=== PATIENT | female | born 1985 | race Caucasian/White ===

== ENCOUNTER 2018-07-19 17:58 | Emergency (ER) | payer MEDICAID ==
[2018-07-19 18:04] VITALS: BMI 22.6
[2018-07-19 18:07] VITALS: O2SAT 100
[2018-07-19] MEDS ORDERED: Iohexol 240 (50 ml) PO ONE (19:05)
[2018-07-19] MEDS ORDERED: Sodium Chloride 0.9% 1,000 ML IV ONE (19:05)
[2018-07-19] MEDS ORDERED: Sodium Chloride 0.9% 500 ML IV ONE (19:05)
[2018-07-19] MEDS ORDERED: Iohexol 240 (50 ml) ONE (19:15)
--- NOTE | 2018-07-19 19:17 | C.PDOC ---
History Of Present Illness 32 y/o female presents to the ED complaining of localized abdominal pain at the right lower quadrant, onset 4-5 days ago. Pain is also radiating down the right lower leg. Patient denies associated nausea/vomiting, she does report some diarrhea. Otherwise she denies fevers, chills, hematuria, frequency, dysuria, or vaginal bleeding. Time Seen by Provider: 07/19/18 19:00 Chief Complaint (Nursing): Abdominal Pain History Per: Patient History/Exam Limitations: no limitations Onset/Duration Of Symptoms: Days Current Symptoms Are (Timing): Still Present Location Of Pain/Discomfort: RLQ Past Medical History Reviewed: Historical Data, Nursing Documentation, Vital Signs Vital Signs: Last Vital Signs Temp 98.2 F 07/19/18 18:04 Pulse 57 L 07/19/18 18:04 Resp 16 07/19/18 18:04 BP 116/82 07/19/18 18:04 Pulse Ox 100 07/19/18 18:04 Surgical History: Cholecystectomy - [facility] Procedures MANUAL ASSIST DELIV NEC (04/16/14) REPAIR OB LACERATION NEC (04/16/14) - Social History Hx Tobacco Use: No Hx Alcohol Use: No Hx Substance Use: No - Immunization History Hx Tetanus Toxoid Vaccination: No Hx Influenza Vaccination: No Hx Pneumococcal Vaccination: No Review Of Systems Except As Marked, All Systems Reviewed And Found Negative. Constitutional: Negative for: Fever, Chills Gastrointestinal: Positive for: Abdominal Pain, Diarrhea. Negative for: Nausea, Vomiting, Hematochezia Genitourinary: Negative for: Dysuria, Frequency, Incontinence, Hematuria Physical Exam - Physical Exam Appears: Non-toxic, No Acute Distress Skin: Normal Color, Warm, Dry Head: Atraumatic, Normacephalic Eye(s): bilateral: Normal Inspection, PERRL, EOMI Oral Mucosa: Moist Neck: Normal ROM Chest: Symmetrical Cardiovascular: Rhythm Regular, No Murmur Respiratory: Normal Breath Sounds, No Accessory Muscle Use Gastrointestinal/Abdominal: Soft, Tenderness (localized tenderness to RLQ), No Guarding, No Rebound Back: No CVA Tenderness, No Vertebral Tenderness Extremity: Bilateral: Atraumatic, Normal Color And Temperature Pulses: Left Dorsalis Pedis: Normal, Right Dorsalis Pedis: Normal Neurological/Psych: Oriented x3, Normal Speech ED Course And Treatment - Laboratory Results Result Diagrams: 07/19/18 19:31 07/19/18 19:31 O2 Sat by Pulse Oximetry: 100 (RA) Pulse Ox Interpretation: Normal - CT Scan/US CT abd/pelvis Other Rad Studies (CT/US): Read By Radiologist, Radiology Report Reviewed CT/US Interpretation: EXAM: CT Abdomen and Pelvis with IV contrast. CLINICAL HISTORY: RLQ abd pain/tenderness. TECHNIQUE: Axial computed tomography images of the abdomen and pelvis with oral and intravenous contrast. 474 mGy-cm. CO NTRAST: With intravenous contrast. With; OMNI 240 & VISI 100 MLS. COMPARISON: None provided. FINDINGS: LUNG BASES: The lung bases appear clear. No pleural effusions are seen. LIVER: There is diffuse hepatic hypoattenuation compatible with fatty infiltration. GALLBLADDER AND BILE DUCTS: S/p cholecystectomy. Surgical clips are noted in the gallbladder fossa. PANCREAS: Unremarkable. SP COLE: Unremarkable. ADRENAL GLANDS: Unremarkable. KIDNEYS, URETERS, AND BLADDER: The kidneys appear within normal limits. There is no hydronephrosis or hydroureter. No urinary calculi are seen. STOMACH AND BOWEL: Thick walled fluid filled duodenum and loops of jejunum compatible with enteritis. APPENDIX: No evidence of acute appendicitis on CT examination. PERITONEUM: No free fluid. No free air. LYMPH NODES: No lymphadenopathy is evident. REPRODUCTIVE: Simple 2 cm right ovarian cyst is seen. The uterus and ovaries are otherwise unremarkable. Tampon is present. VASCULATURE: No evidence of abdominal aortic aneurysm. BONES: No aggressive appearing osseous lesion. No acute osseous pathology evident. IMPRESSION: 1. Fatty liver. 2. S/p cholecystectomy. 3. Enteritis as above. 4. Simple 2 cm right ovarian cyst is seen. . Electronically signed on Jul 19, 2018 9:56:07 PM EDT by: Eliceo Ornelas M.D., MARCOS Certified By ABR & CBC[employer]. Fellowship Trained MRI and CT Specialist Medical Decision Making Medical Decision Making: Impression: RLQ pain Plan: Labs ordered and reviewed. CT Abd/Pelvis ordered with PO & IV contrast. Administ ered IV fluids and Toradol. Disposition Counseled Patient/Family Regarding: Diagnosis - Disposition Referrals: [facility] [Outside] Disposition: HOME/ ROUTINE Disposition Time: 23:29 Condition: STABLE Prescriptions: Naproxen 375 mg PO Q8 #14 tablet Forms: [employer] ([place]) - POA Present On Arrival: None - Clinical Impression Clinical Impression: Ovarian cyst, Abdominal pain - Scribe Statement The provider has reviewed the documentation as recorded by the Scribe (Malka Sahni) Provider Attestation: All medical record entries made by the Scribe were at my direction and personally dictated by me. I have reviewed the chart and agree that the record accurately reflects my personal performance of the history, physical exam, m edical decision making, and the department course for this patient. I have also personally directed, reviewed, and agree with the discharge instructions and disposition.
[2018-07-19 19:34] LABS: SQUAMOUS EPITHIAL 1 /hpf (0-5); URINE BILIRUBIN NEGATIVE (NEGATIVE); URINE BLOOD 1+ (NEGATIVE); URINE CLARITY Clear (Clear); URINE COLOR Straw (YELLOW); URINE GLUCOSE (UA) NORMAL (Normal); URINE LEUKOCYTE ESTERASE NEG Leu/uL (Negative); URINE PROTEIN NEGATIVE (NEGATIVE); URINE UROBILINOGEN NORMAL mg/dL (0.2-1.0)
[2018-07-19 19:35] LABS: HCG,QUALITATIVE URINE NEGATIVE (NEGATIVE)
[2018-07-19 19:37] LABS: BASO % 0.5 % (0.0-2.0); EOS % 0.8 % (0.0-4.0); LYMPH # 2.4 K/uL (1.0-4.3); LYMPH % 39.9 % (20.0-40.0); MEAN CELL VOLUME 83.1 fL (81.0-99.0); MEAN CORPUSCULAR HEMOGLOBIN 28.1 pg (27.0-31.0); MEAN CORPUSCULAR HGB CONC 33.8 g/dL (33.0-37.0); MEAN PLATELET VOLUME 8.1 fL (7.2-11.7); MONO # 0.5 K/uL (0.0-0.8); MONO % 7.7 % (0.0-10.0); NEUT % 51.1 % (50.0-75.0); RBC 4.59 Mil/uL (3.80-5.20); RED CELL DISTRIBUTION WIDTH 13.9 % (11.5-14.5)
[2018-07-19 19:39] LABS: HEMOGLOBIN 12.9 g/dL (11.0-16.0)
[2018-07-19 19:50] LABS: ALB/GLOB RATIO 1.4 (1.0-2.1); ALBUMIN 4.3 g/dL (3.5-5.0); ALT/SGPT 28 U/L (9-52); AST/SGOT 37 U/L (14-36); BLOOD UREA NITROGEN 13 mg/dL (7-17); GFR NON-AFRICAN AMERICAN > 60; LIPASE 283 U/L (23-300)
[2018-07-19] MEDS ORDERED: Iodixanol 320 MG/ML 100 ML BOTTLE IV ONE (20:11)
[2018-07-19 20:42] VITALS: RESP 17
[2018-07-19 22:24] VITALS: BP 109/72; PULSE 52; TEMP 98.1
--- NOTE | 2018-07-20 09:38 | CT ---
Date of service: 07/19/2018 PROCEDURE: CT Abdomen and Pelvis with contrast HISTORY: RLQ pain/ tenderness Negative test (concurrent with this examination). COMPARISON: None. TECHNIQUE: Intravenous contrast dose: 100 cc Visipaque 320. Radiation dose: Total exam DLP = 474.29 mGy-cm. This CT exam was performed using one or more of the following dose reduction techniques: Automated exposure control, adjustment of the mA and/or kV according to patient size, and/or use of iterative reconstruction technique. FINDINGS: LOWER THORAX: Unremarkable. LIVER: Hepatic steatosis. No focal masses. No intrahepatic bile duct dilatation or perihepatic ascites. GALLBLADDER AND BILE DUCTS: Status post cholecystectomy. No abnormality is seen in the gallbladder fossa. PANCREAS: Unremarkable. No gross lesion or ductal dilatation. SPLEEN: Unremarkable. ADRENALS: Unremarkable. No mass. KIDNEYS AND URETERS: Unremarkable. No hydronephrosis. No solid mass. VASCULATURE: Unremarkable. No aortic aneurysm. BOWEL: Unremarkable. No obstruction. No gross mural thickening. APPENDIX: Normal appendix. PERITONEUM: Unremarkable. No free fluid. No free air. LYMPH NODES: Unremarkable. No enlarged lymph nodes. BLADDER: Unremarkable. REPRODUCTIVE: Right adnexal cyst 2 cm. Otherwise unremarkable. BONES: No acute fracture. OTHER FINDINGS: None. IMPRESSION: No acute findings related to/accounting for the clinical presentation. Additional benign and/or incidental findings described above. Concordant results (preliminary interpretation) provided by [employer]. Procedure Completed: 21:04 Preliminary Report: Dictated and Authenticated: 21:58 Final Interpretation: 09:37.
== END 2018-07-19 23:45 | disposition home or self-care (01) ==
LOC: C.ER 17:58
DX: N83.209 Unspecified ovarian cyst, unspecified side (principal); R10.31 Right lower quadrant pain
CPT/HCPCS: 74177; 80053; 81001; 83690; 84703; 85025; 96361; 96374; 99285; J1885; J7030; J7040; Q9966; Q9967

== ENCOUNTER 2019-01-05 15:50 | Outpatient (CLI) | payer MEDICAID | END 2019-01-05 15:51 | disposition home or self-care (01) | LOC: C.MRIC 15:50 ==